=== PATIENT | male | born 1990 | race Caucasian/White ===

== ENCOUNTER → 2018-07-23 | Outpatient (CLI) | payer BC, SELFPAY ==
--- NOTE | 2018-07-23 13:02 | PFT ---
INTRODUCTION: The patient is a 27-year-old male that presents for pulmonary function studies secondary to a diagnosis of asthma. Respiratory therapy reports good patient effort. Bronchodilators were used during testing. INTERPRETATION: Forced expiration spirometry demonstrates no evidence of a large airways obstructive ventilatory defect. There was no significant response to aerosolized bronchodilators, based upon strict ATS criteria. Spirograms are of good quality and plateau normally. Body plethysmography was performed and reveals lung volumes to be within normal limits. Diffusing capacity by single breath CO is also within normal limits. IMPRESSION: Normal pulmonary function studies.
== END | disposition home or self-care (01) ==
LOC: PSN 07:00
PROVIDERS: Family Provider Family Medicine; PCP Family Medicine; Referring Provider Family Medicine; Visit Provider Family Medicine
DX: J45.909 Unspecified asthma, uncomplicated (principal)
CPT/HCPCS: 94060; 94726; 94729

== ENCOUNTER → 2022-10-14 | Outpatient (CLI) | payer OTHER, SELFPAY ==
[2022-10-14 12:21] LABS: ALB/GLOB Ratio 1.2 RATIO (0.9-2.4); AST(SGOT) 26 U/L (15-37); Alanine Aminotransfer ALT/SGPT 38 U/L (16-61); Albumin, Serum 3.8 g/dL (3.2-5.0); Alkaline Phosphatase 60 U/L (45-117); Anion Gap 5 (5-15); BUN 12 mg/dL (7-18); BUN/Creat Ratio 11.4 RATIO (10-20); Chloride 107 mmol/L (98-107); Cholesterol 154 mg/dL (200); Creatinine, Serum 1.05 mg/dL (0.70-1.30); EST Glomerular Filtration Rate 88 mL/min (>60); Est Glom Filt Rate - Afr Amer 107 mL/min (>60); Globulin 3.3 g/dL (2.2-4.2); Glucose 84 mg/dL (74-106); High Density Lipoprotein 44 mg/dL; Potassium 3.8 mmol/L (3.5-5.1); Protein, Total 7.1 g/dL (6.4-8.2); Sodium Level 141 mmol/L (136-145); Triglycerides 129 mg/dL; Very Low Density Lipoprotein 26 mg/dL (5-40)
[2022-10-14 12:27] LABS: Absolute Lymphocyte Count 2.45 X10^3/uL (0.83-4.51); Absolute Neutrophil Count 4.9 X10^3/uL (2.0-7.7); Basophil# 0.03 X10^3/uL; Basophil% 0.4 % (0-1); Eosinophil# 0.07 X10^3/uL; Eosinophils% 0.9 % (0-5); Hematocrit 46.9 % (40-54); Hemoglobin 16.6 g/dL (13.0-16.5); Lymphocyte # 2.45 X10^3/ul (0.83-4.51); Lymphocyte % 31.2 % (19-41); Mean Corp Hgb Conc 35.4 g/dL (32-36); Mean Corpuscular Hgb 29.2 pg (27.0-32.0); Mean Corpuscular Volume 82.4 fL (80-94); Mean Platelet Vol. 10.6 fl (6.2-12.0); Monocyte# 0.41 X10^3/uL; Monocyte% 5.2 % (0-10); NRBC Flagged by Analyzer 0 % (0-5); Neutrophil # 4.88 X10^3/uL (2.7-7.7); Platelet Count 211 K/mm3 (150-450); RBC Distribution Width CV 12.7 % (11.6-14.6); RBC Distribution Width SD 37.3 fl (35.1-43.9); Red Blood Count 5.69 M/mm3 (4.6-6.2); White Blood Count 7.9 K/mm3 (4.4-11.0)
[2022-10-27 18:07] LABS: Factor VIII Activity 82 % (56-140); Testosterone, % Free 2.44 % (1.50-4.20); Testosterone, Free 16.98 ng/dL (5.00-21.00); Testosterone, Total 696 ng/dL (264-916)
== END | disposition home or self-care (01) ==
PROVIDERS: PCP Family Medicine; Referring Provider Family Medicine; Visit Provider Family Medicine
DX: Z00.00 Encounter for general adult medical examination without abnormal findings (principal); R53.83 Other fatigue; Z83.2 Family history of diseases of the blood and blood-forming organs and certain disorders involving the immune mechanism; R04.0 Epistaxis
CPT/HCPCS: 36415; 80053; 80061; 81291; 84402; 84403; 84443; 85025; 85240; 85245

== ENCOUNTER → 2023-11-13 | Outpatient (CLI) | payer OTHER, SELFPAY ==
--- NOTE | 2023-11-13 09:01 | RAD_ITS ---
STUDY: X-RAY - LUMBAR SPINE REASON FOR EXAM: Male, 33 years old. Radiating low back and left leg pain TECHNIQUE: 5 view(s) of the lumbar spine were obtained. COMPARISON: None FINDINGS: Normal lumbar lordosis. There is no substantial scoliosis. There is a normal alignment of the vertebrae. Normal vertebral bodies and endplates. Normal disc space heights. The soft tissue structures are unremarkable. RAD/L/S Spine Min 4 Views IMPRESSION: Normal x-ray examination of the lumbar spine. Electronically Signed: Chico Mobley MD at 9:04 EDT ,
== END | disposition home or self-care (01) ==
PROVIDERS: PCP Family Medicine; Referring Provider Family Medicine; Visit Provider Family Medicine
DX: M79.605 Pain in left leg (principal)
CPT/HCPCS: 72110

== ENCOUNTER → 2024-07-15 | Outpatient (CLI) | payer OTHER, SELFPAY ==
[2024-07-15 07:49] LABS: Erythrocyte Sedimentation Rate < 1 mm/hr (0-20)
[2024-07-15 08:02] LABS: Absolute Lymphocyte Count 2.18 X10^3/uL (0.83-4.51); Absolute Neutrophil Count 4.7 X10^3/uL (2.0-7.7); Basophil# 0.03 X10^3/uL; Basophil% 0.4 % (0-1); Eosinophil# 0.09 X10^3/uL; Eosinophils% 1.2 % (0-5); Hematocrit 45.7 % (40-54); Hemoglobin 16.1 g/dL (13.0-16.5); Lymphocyte # 2.18 X10^3/ul (0.83-4.51); Mean Corp Hgb Conc 35.2 g/dL (32-36); Mean Corpuscular Hgb 28.3 pg (27.0-32.0); Mean Corpuscular Volume 80.3 fL (80-94); Mean Platelet Vol. 10.4 fl (6.2-12.0); Monocyte# 0.45 X10^3/uL; NRBC Flagged by Analyzer 0 % (0-5); Neutrophil # 4.73 X10^3/uL (2.7-7.7); Platelet Count 214 K/mm3 (150-450); RBC Distribution Width CV 12.8 % (11.6-14.6); RBC Distribution Width SD 36.5 fl (35.1-43.9); Red Blood Count 5.69 M/mm3 (4.6-6.2); White Blood Count 7.5 K/mm3 (4.4-11.0)
[2024-07-15 08:21] LABS: Hemoglobin A1c 5.1 % (<=5.6)
[2024-07-15 08:37] LABS: ALB/GLOB Ratio 1.7 RATIO (0.9-2.4); AST(SGOT) 22 U/L (<=37); Alanine Aminotransfer ALT/SGPT 23 U/L (<=46); Albumin, Serum 4.3 g/dL (3.5-5.0); Alkaline Phosphatase 58 U/L (40-129); Anion Gap 10 (5-15); BUN 13 mg/dL (4-19); BUN/Creat Ratio 13.7 RATIO (10-20); Calcium,Total 9.2 mg/dL (7.6-11.0); Carbon Dioxide 24.3 mmol/L (21.0-32.0); Chloride 102 mmol/L (98-108); Cholesterol 160 mg/dL (<=200); Creatinine, Serum 0.92 mg/dL (0.70-1.20); EST Glomerular Filtration Rate 114 (>60); Globulin 2.5 g/dL (2.2-4.2); Glucose 85 mg/dL (70-99); High Density Lipoprotein 41 mg/dL; Low Density Lipoprotein Calc. 96 mg/dL; Potassium 4.1 mmol/L (3.3-5.1); Protein, Total 6.8 g/dL (5.9-8.4); Sodium Level 137 mmol/L (133-145); Total Bilirubin 0.56 mg/dL (0.00-1.30); Triglycerides 118 mg/dL; Very Low Density Lipoprotein 24 mg/dL (5-40); Vitamin D,25 Hydroxy 35.3 ng/mL (30-100); cholesterol:hdl ratio screen 3.94
[2024-07-15 08:40] LABS: CRP < 3.00 mg/L (0.0-3.0)
[2024-07-18 12:08] LABS: ANTINUCLEAR ANTIBODIES DIRECT Negative (Negative)
== END | disposition home or self-care (01) ==
LOC: LAB 07:08
PROVIDERS: PCP Family Medicine; Referring Provider Family Medicine; Visit Provider Family Medicine
DX: Z00.00 Encounter for general adult medical examination without abnormal findings (principal); R53.83 Other fatigue; R68.82 Decreased libido; F41.9 Anxiety disorder, unspecified; R73.9 Hyperglycemia, unspecified
CPT/HCPCS: 36415; 80053; 80061; 82306; 83036; 83525; 84402; 84403; 84439; 84443; 85025; 85652; 86038; 86140; 86225; 86235